=== PATIENT | female | born 1985 | race Caucasian/White ===

== ENCOUNTER 2017-06-02 17:50 | Emergency (ER) | payer BC ==
[2017-06-02 17:57] VITALS: BP 139/73; BMI 36.3
--- NOTE | 2017-06-02 18:24 | DR.GENAD ---
HPI - PCP Primary Care Physician: [place] - Complaint/Symptoms Chief Complaint:: PT C/O VAGINAL BLEEDING/ SPOTTING. PT STATES SHE IS NOTED TO BE 7 WEEKS . PT STATES SHE JUST STARTED THE SPOTTING THIS AFTERNOON AROUND 1600 AND SHE HAS PASSED X 2 SMALL CLOTS. PT DOES HAVE A YANDEL WITH HER OBGYN IN THE AM. SHE IS JUST CONCERNED ABOUT THE BLEEDING - Nurses notes reviewed Nurses Notes Review: Yes - Source History Provided: Patient - Mode of Arrival Mode of Arrival: Ambulatory - Timing Onset of Chief Complaint: 06/02/17 Came on: Gradually - Duration Duration: Intermittent How lon Duration: Hours - Location Location: vagina - Severity Severity: Mild - Modifying Factors Worsens:: unknown - Associated Signs and Symptoms Associated Signs and Symptoms: no pain - Other History Other History: Had ultrasound by [facility] 1 week ago PMH - PMH Past Medical History: No Past Surgical History: Yes Surgical History: , Ortho Surgery - Family History History of Family Medical Conditions: No - Social History Does any household member use tobacco: No Alcohol Use: None Do you use any recreational Drugs:: No Lives With: Family Lives Where: Home - infectious screening In the last 2 months have you had wt loss of >10#?: NO Have you had fever, night sweats or hemotysis?: No Have you traveled outside the country in the last 6 months?: No Isolation: Standard ROS - Review of Systems Constitutional: No Symptoms Reported Eyes: No Symptoms Reported ENTM: No Symptoms Reported Respiratoy: No Symptoms Reported Cardiovascular: No Symptoms Reported Gastrointestinal/Abdominal: No Symptoms Reported Genitourinary: Bleeding (spotting) Neurological: No Symptoms Reported Musculoskeletal: No Symptoms Reported Integumentary: No Symptoms Reported Hematologic/Lymphatic: No Symptoms Reported Endocrine: No Symptoms Reported Psychiatric: No Symptoms Reported PE - Vital Signs Vitals: Temperature 98.1 F Pulse Rate 84 Respiratory Rate 20 Blood Pressure 139/73 O2 Sat by Pulse Oximetry 100 - General Limitations: No Limitations General Appearance: Alert, In No Apparent Distress - Head Head Exam: Normal Inspection - Eyes Eye exam: Normal Appearance, EOMI. negative: Scleral Icterus, Conjunctival Injection - ENT ENT Exam: Normal Exam - Neck Neck Exam: Normal Inspection, Full ROM, Trachea Midline - Respiratory Respiratory Exam: negative: Accessory Muscle Use, Respiratory Distress - Cardiovascular Cardiovascular Exam: Regular Rate - Abdominal Exam Abdominal Exam: Normal Inspection, Distention - Extremities Extremities Exam: Normal Inspection, Full ROM, Tenderness - Back Back Exam: Normal Inspection - Neurologic Neurological Exam: Alert, Oriented X3, CN II-XII Intact - Psychiatric Psychiatric Exam: Anxious - Skin Skin Exam: Intact, Normal Color ROR - Labs Reviewed Laboratory: HCG, Quant 47733 mIU/mL (0-6) H 06/02/17 18:34 Specimen Type Clean catch urine 06/02/17 18:30 Urine Color Yellow (YELLOW) 06/02/17 18:30 Urine Appearance Clear (CLEAR) 06/02/17 18:30 Urine pH 6.0 (5.0 - 8.0) 06/02/17 18:30 Ur Specific [place] 1.020 (1.000-1.030) 06/02/17 18:30 Urine Protein Negative (NEGATIVE) 06/02/17 18:30 Urine Glucose (UA) Negative (NEGATIVE) 06/02/17 18:30 Urine Ketones Negative (NEGATIVE) 06/02/17 18:30 Urine Occult Blood 2+ (NEGATIVE) 06/02/17 18:30 Urine Nitrite Negative (NEGATIVE) 06/02/17 18:30 Urine Bilirubin Negative (NEGATIVE) 06/02/17 18:30 Urine Urobilinogen Normal (NORMAL) 06/02/17 18:30 Ur Leukocyte Esterase Negative (NEGATIVE) 06/02/17 18:30 Urine RBC 0-3 /HPF (NEGATIVE) 06/02/17 18:30 Urine WBC 0-1 /HPF (NEGATIVE) 06/02/17 18:30 Ur Squamous Epith Cells Rare /HPF (NEGATIVE) 06/02/17 18:30 Urine Bacteria Trace /HPF (NEGATIVE) 06/02/17 18:30 Ur Culture Indicated? No/not indicated 06/02/17 18:30 - Diagnosis Discharge Problem: Threatened - Discharge Plan Condition: Stable - Follow ups/Referrals Follow ups/Referrals: DONNELL WILEY [Primary Care Provider] - 3 days - Instructions Instructions: Threatened Miscarriage, [id number]
[2017-06-02 18:42] LABS: BILIRUBIN,URINE NEGATIVE (NEGATIVE); BLOOD/HEMOGLOBIN,URINE 2+ (NEGATIVE); GLUCOSE, URINE NEGATIVE (NEGATIVE); KETONES,URINE NEGATIVE (NEGATIVE); LEUKOCYTE ESTERASE ,URINE NEGATIVE (NEGATIVE); NITRITES,URINE NEGATIVE (NEGATIVE); PROTEIN,URINE NEGATIVE (NEGATIVE); UROBILINOGEN,URINE NORMAL (NORMAL)
[2017-06-02 18:48] LABS: APPEARANCE,URINE CLEAR (CLEAR); BACTERIA,URINE TRACE /HPF (NEGATIVE); COLOR,URINE YELLOW (YELLOW); RBC,URINE 0-3 /HPF (NEGATIVE); SQUAMOUS EPITHELIAL CELL,UR RARE /HPF (NEGATIVE)
== END 2017-06-02 19:45 | disposition home or self-care (01) ==
LOC: ER 18:11
DX: O26.859 Spotting complicating pregnancy, unspecified trimester (principal); O20.0 Threatened abortion
CPT/HCPCS: 36415; 81001; 84702; 99282; 99284

== ENCOUNTER → 2017-06-10 | Outpatient (CLI) | payer BC ==
[2017-06-02 17:57] VITALS: BP 139/73
[2017-06-10 16:47] LABS: BASOPHILS # (AUTO) 0.1 X10^3/uL (0.0-0.1); BASOPHILS % (AUTO) 0.7 % (0.2-1.0); EOSINOPHILS # (AUTO) 0.2 x10^3/uL (0.0-0.2); EOSINOPHILS % (AUTO) 2.1 % (0.9-2.9); HEMATOCRIT 35.9 % (36.0-47.0); HEMOGLOBIN 11.9 g/dL (12.0-16.0); LYMPHOCYTES # (AUTO) 2.2 X10^3/uL (1.3-2.9); LYMPHOCYTES % (AUTO) 29.2 % (21.0-51.0); MEAN CORPUSCULAR HEMOGLOBIN 27.4 pg (27.0-34.0); MEAN CORPUSCULAR HGB CONC 33.3 g/dL (33.0-35.0); MEAN CORPUSCULAR VOLUME 82.4 fL (80.0-100.0); MEAN PLATELET VOLUME 8.7 fL (7.4-11.0); MONOCYTES # (AUTO) 0.5 x10^3/uL (0.3-0.8); MONOCYTES % (AUTO) 7.4 % (0.0-13.0); NEUTROPHILS # (AUTO) 4.5 x10^3/uL (2.2-4.8); NEUTROPHILS % (AUTO) 60.6 % (42.0-75.0); PLATELET COUNT 187 X10^3/uL (150.0-450.0); RED BLOOD COUNT 4.35 X10^6/uL (3.5-5.4); RED CELL DISTRIBUTION WIDTH 15.3 % (11.6-16.5); WHITE BLOOD COUNT 7.4 X10^3/uL (3.6-10.0)
[2017-06-10 16:54] LABS: BLOOD UREA NITROGEN 9 mg/dL (7-18); CARBON DIOXIDE 27.3 mmol/L (21-32); CHLORIDE 103 mmol/L (98-107); CREATININE 0.69 mg/dL (0.55-1.02); GLUCOSE 82 mg/dL (65-99); SODIUM 138 mmol/L (136-145); eGFR BLACK RACES > 60 (>60); eGFR NON BLACK RACES > 60 (>60)
[2017-06-10 16:56] LABS: BILIRUBIN,URINE NEGATIVE (NEGATIVE); BLOOD/HEMOGLOBIN,URINE 4+ (NEGATIVE); GLUCOSE, URINE NEGATIVE (NEGATIVE); KETONES,URINE NEGATIVE (NEGATIVE); LEUKOCYTE ESTERASE ,URINE NEGATIVE (NEGATIVE); NITRITES,URINE NEGATIVE (NEGATIVE); PROTEIN,URINE NEGATIVE (NEGATIVE); UROBILINOGEN,URINE NORMAL (NORMAL)
[2017-06-10 17:25] LABS: APPEARANCE,URINE CLEAR (CLEAR); BACTERIA,URINE TRACE /HPF (NEGATIVE); COLOR,URINE YELLOW (YELLOW); SQUAMOUS EPITHELIAL CELL,UR MODERATE /HPF (NEGATIVE)
== END ==
LOC: LAB 16:11
PROVIDERS: ATTEND Specialist
DX: Z01.812 Encounter for preprocedural laboratory examination (principal); O02.1 Missed abortion
CPT/HCPCS: 36415; 80048; 81001; 85025; 85610; 85730; 86592; 86850; 86900; 86901; 87086

== ENCOUNTER → 2017-06-12 | Day surgery (SDC) | payer BC ==
[~2017-06-12] MED LIST: ANCEF VIAL 1 GM ONE; D5 1/2 NS 1000 ML 1,000 ML IV ONE; DIPRIVAN VIAL ONE; FENTANYL INJ 100 mcg ONE; NS 50 ML IV + SPIKE MINIBAG* 50 ML IV ONE; PERCOCET TAB 5/325 MG ONE; PITOCIN ONE; VERSED ONE; XYLOCAINE 2 % (PLAIN) ONE; ZOFRAN INJ 4 MG VIAL ONE
[2017-06-12 08:39] VITALS: BP 121/74
== END | disposition home or self-care (01) | DRG 770 ==
LOC: SURG1 06:24
PROVIDERS: ATTEND Specialist
PROC: 10D17ZZ Extraction of Products of Conception, Retained, Via Natural or Artificial Opening (ICD-10-PCS; principal; 2017-06-12 07:30)
DX: O02.1 Missed abortion (principal)
CPT/HCPCS: A4222; J0690; J2001; J2250; J2405; J2590; J3010; J3490; J7042

== ENCOUNTER 2022-06-17 08:12 | Inpatient (IN) ==
[2022-06-17 08:18] VITALS: BMI 35.4
--- NOTE | 2022-06-17 08:57 | ED.ABDFE ---
HPI Time Seen Time Seen by Provider: 06/17/22 08:42 PCP Primary Care Physician: SAURABH LOWE Complaint Doctors Chief Complaint Comments: 36 y/o female presents for evaluation. Is 7 wks . Developed severe abdominal pain yesterday am. Was located across upper abdomen, radiated down to LLQ. Occurred at rest. Last several minutes. Was worse with moving. Nothing made it better. No associated nausea, vomitng, diaphoresis, bowel or bladder issues, fever, rash. Resolved after several minutes on its own. Fine the rest of the day. Reoccurred early this am at rest. Currently not as bad. Sent in by OB for evaluation. Chief Complaint:: PT IS 7 WEEKS , PT REPORTS HAVING PAIN TO HER LEFT UPPER QUAD, THAT RADIATES TO HER LOWER PELVIC AREA, PT STATES PAIN STARTED YESTEDAY WHILE SITTING THAN IT WENT AWAY, 0630- PTS PAIN HAS STARTED AGAIN TO THE SAME AREA, ( PT DENIES VAGINAL LEAKING, BLEEDING OR DISCHARE ) PT REPORTS THAT PAIN FEELS MORE MUSCULAR,,BR Self Treatment fo Chief Complaint: PT DENIES DYSURIA, COVID-19 Coronavirus risk:travel/contact w/high risk person: No Has patient experienced Coronavirus symptoms: No Reviewed Nurses Notes Review: Yes Source History Provided: Patient Mode of arrival Mode of Arrival: Ambulatory Timing Onset of Chief Complaint: 06/16/22 PMH PMH Past Medical History: No Past Surgical History: Yes Surgical History: Past Surgical History Comment: D AND C, Family History History of Family Medical Conditions: No Social History Does patient currently use any type of tobacco product: No Have you used tobacco products in the last 12 months: No Type of Tobacco Use: None Does any household member use tobacco: No Alcohol Use: None Do you use any recreational Drugs:: No Lives With: Family Lives Where: Home Travel Risk Coronavirus risk:travel/contact w/high risk person: No Has patient experienced Coronavirus symptoms: No Infectious screening In the last 2 months have you had wt loss of >10#?: NO Have you had fever, night sweats or hemotysis?: No Have you traveled outside the country in the last 6 months?: No Isolation: Standard ROS Review of Systems Constitutional: No Symptoms Reported Eyes: No Symptoms Reported ENTM: No Symptoms Reported Respiratoy: No Symptoms Reported Cardiovascular: No Symptoms Reported Gastrointestinal/Abdominal: See HPI Genitourinary: No Symptoms Reported Neurological: No Symptoms Reported Musculoskeletal: No Symptoms Reported Integumentary: No Symptoms Reported Hematologic/Lymphatic: No Symptoms Reported Psychiatric: No Symptoms Reported All Other Systems: Reviewed and Negative PE Vital Signs Vitals: Temperature 96.5 F Pulse Rate 83 Respiratory Rate 18 Blood Pressure 129/72 O2 Sat by Pulse Oximetry 98 General General Appearance: Alert and In No Apparent Distress Eyes Eye exam: PERRL and EOMI Neck Neck Exam: Normal Inspection and Full ROM Respiratory Respiratory Exam: Normal Lung Sounds Bilat; negative Accessory Muscle Use or Respiratory Distress Cardiovascular Cardiovascular Exam: Regular Rate, Normal Rhythm and Normal Heart Sounds Abdominal Exam Abdominal Exam: Normal Bowel Sounds, Soft and Tenderness (all quadrants, no guarding or rebound. + pain with Valsalva, straight leg raising.) Back Back Exam: Normal Inspection; negative (R) CVA Tenderness or (L) CVA Tenderness Extremeties Extremities Exam: Normal Inspection and Full ROM; negative Edema Neurologic Neurological Exam: Alert, Oriented X3 and CN II-XII Intact; negative Motor Sensory Deficit Psychiatric Psychiatric Exam: Normal Affect Skin Skin Exam: Warm and Dry; negative Rash MDM Differential Diagnosis Differential Diagnosis- Considerations may include:: -Missed, -Threatened, Appendicitis, Cholcystitis, Cholelethiasis, Diverticular disease, Ectopic , Gastritus/PUD, Gastroenteritis, Pancreatitis, Urinary tract infection and Urolithiasis COURSE Treatment Treatment: 36 y/o female, 7 weeks gestation, having intermittent abdominal pain. Clinically seems muscular in origin. W/u initiated. 1038 - pt remains stable. US shows R adnexal ectopic, with cardiac activity, small amount of free fluid. Labs acceptable. PT informed. Is NPO. Dr Antoine notified, will be taking pt to the OR. ROR Labs Reviewed Laboratory Results Reviewed?: Yes Result Diagrams: 06/17/22 09:00 06/17/22 09:00 Laboratory: WBC 7.0 X10^3/uL (3.6-10.0) 06/17/22 09:00 RBC 4.13 X10^6/uL (3.5-5.4) 06/17/22 09:00 Hgb 10.8 g/dL (12.0-16.0) L 06/17/22 09:00 Hct 32.5 % (36.0-47.0) L 06/17/22 09:00 MCV 78.6 fL (80.0-100.0) L 06/17/22 09:00 MCH 26.3 pg (27.0-34.0) L 06/17/22 09:00 MCHC 33.4 g/dL (33.0-35.0) 06/17/22 09:00 RDW 15.8 % (11.6-16.5) 06/17/22 09:00 Plt Count 208 X10^3/uL (150.0-450.0) 06/17/22 09:00 MPV 8.6 fL (7.4-11.0) 06/17/22 09:00 Neut % (Auto) 75.0 % (42.0-75.0) 06/17/22 09:00 Lymph % (Auto) 19.1 % (21.0-51.0) L 06/17/22 09:00 [place] % (Auto) 4.5 % (0.0-13.0) 06/17/22 09:00 Eos % (Auto) 1.0 % (0.9-2.9) 06/17/22 09:00 Baso % (Auto) 0.4 % (0.2-1.0) 06/17/22 09:00 Neut # (Auto) 5.2 x10^3/uL (2.2-4.8) H 06/17/22 09:00 Lymph # (Auto) 1.3 X10^3/uL (1.3-2.9) 06/17/22 09:00 [place] # (Auto) 0.3 x10^3/uL (0.3-0.8) 06/17/22 09:00 Eos # (Auto) 0.1 x10^3/uL (0.0-0.2) 06/17/22 09:00 Baso # (Auto) 0.0 X10^3/uL (0.0-0.1) 06/17/22 09:00 Absolute Nucleated RBC 0.0 /100WBC 06/17/22 09:00 Sodium 139 mmol/L (136-145) 06/17/22 09:00 Corrected Sodium TNP 06/17/22 09:00 Potassium 3.5 mmol/L (3.5-5.1) 06/17/22 09:00 Chloride 103 mmol/L (98-107) 06/17/22 09:00 Carbon Dioxide 25.4 mmol/L (21-32) 06/17/22 09:00 BUN 8 mg/dL (7-18) 06/17/22 09:00 Creatinine 0.67 mg/dL (0.55-1.02) 06/17/22 09:00 Est GFR (MDRD) Af Amer > 60 (>60) 06/17/22 09:00 Est GFR (MDRD) Non-Af > 60 (>60) 06/17/22 09:00 Glucose 93 mg/dL (65-99) 06/17/22 09:00 Calcium 8.4 mg/dL (8.5-10.1) L 06/17/22 09:00 Corrected Calcium 9.2 mg/dL (8.5-10.1) 06/17/22 09:00 Total Bilirubin 0.70 mg/dL (0.2-1.0) 06/17/22 09:00 AST 14 Units/L (15-37) L 06/17/22 09:00 ALT 18 Units/L (12-78) 06/17/22 09:00 Alkaline Phosphatase 68 Units/L (46-116) 06/17/22 09:00 Total Protein 7.1 g/dL (6.4-8.2) 06/17/22 09:00 Albumin 3.0 g/dL (3.4-5.0) L 06/17/22 09:00 Globulin 4.1 g/dL (2.5-4.5) 06/17/22 09:00 Albumin/Globulin Ratio 0.7 Ratio (1.1-2.1) L 06/17/22 09:00 HCG, Quant 83532 mIU/mL (0-6) H 06/17/22 09:00 Specimen Type Clean catch urine 06/17/22 08:32 Urine Color Yellow (YELLOW) 06/17/22 08:32 Urine Appearance Clear (CLEAR) 06/17/22 08:32 Urine pH 6.0 (5.0 - 8.0) 06/17/22 08:32 Ur Specific [place] 1.010 (1.000-1.030) 06/17/22 08:32 Urine Protein Negative (NEGATIVE) 06/17/22 08:32 Urine Glucose (UA) Negative (NEGATIVE) 06/17/22 08:32 Urine Ketones Negative (NEGATIVE) 06/17/22 08:32 Urine Blood Negative (NEGATIVE) 06/17/22 08:32 Urine Nitrite Negative (NEGATIVE) 06/17/22 08:32 Urine Bilirubin Negative (NEGATIVE) 06/17/22 08:32 Urine Urobilinogen Normal (NORMAL) 06/17/22 08:32 Ur Leukocyte Esterase Negative (NEGATIVE) 06/17/22 08:32 Mild anemia, quant HCG 14K XRAY XRAY Interpreted by: Radiologist X-ray Results: Transvaginal US with R ectopic . Opioid Opioid Risk Tool Age (Singh box if 16-45): Yes History of Preadolescent Sexual Abuse: No Total: 1 Total Score Risk Category: Low Risk Copyright: Kishor MEJIA predicting aberrant behaviors Discharge Plan Diagnosis Discharge Problem: Ectopic of right ovary Discharge Plan Patient Disposition: 09 ADMITTED INPATIENT Condition: Stable Prescriptions: No Action ibuprofen 800 MG tablet 800 mg PO Q8H PRN (Reason: Pain/Inflammation) Qty: 30 0RF oxycodone-acetaminophen [Percocet] 1 EACH tablet 1 - 2 tab PO Q4-6H PRNQty: 30 0RF Health Concerns: Post Hospitalization: new medications and changes needed to prevent readmission or further decline. Pt educated and given instructions on all concerns. Plan of Treatment: Continue with present treatment and follow up plan. Pt is to keep follow up appointment as instructed and take medications as ordered. Follow ups/Referrals Follow ups/Referrals: DONNELL ANTOINE [Primary Care Provider] - 3 days
[2022-06-17 09:10] LABS: BASOPHILS % (AUTO) 0.4 % (0.2-1.0); EOSINOPHILS # (AUTO) 0.1 x10^3/uL (0.0-0.2); HEMATOCRIT 32.5 % (36.0-47.0); HEMOGLOBIN 10.8 g/dL (12.0-16.0); LYMPHOCYTES # (AUTO) 1.3 X10^3/uL (1.3-2.9); LYMPHOCYTES % (AUTO) 19.1 % (21.0-51.0); MEAN CORPUSCULAR HEMOGLOBIN 26.3 pg (27.0-34.0); MEAN CORPUSCULAR HGB CONC 33.4 g/dL (33.0-35.0); MEAN CORPUSCULAR VOLUME 78.6 fL (80.0-100.0); MEAN PLATELET VOLUME 8.6 fL (7.4-11.0); MONOCYTES # (AUTO) 0.3 x10^3/uL (0.3-0.8); MONOCYTES % (AUTO) 4.5 % (0.0-13.0); NEUTROPHILS # (AUTO) 5.2 x10^3/uL (2.2-4.8); RED BLOOD COUNT 4.13 X10^6/uL (3.5-5.4); RED CELL DISTRIBUTION WIDTH 15.8 % (11.6-16.5)
[2022-06-17 09:10] LABS: BILIRUBIN,URINE NEGATIVE (NEGATIVE); BLOOD/HEMOGLOBIN,URINE NEGATIVE (NEGATIVE); GLUCOSE, URINE NEGATIVE (NEGATIVE); KETONES,URINE NEGATIVE (NEGATIVE); LEUKOCYTE ESTERASE ,URINE NEGATIVE (NEGATIVE); NITRITES,URINE NEGATIVE (NEGATIVE); PROTEIN,URINE NEGATIVE (NEGATIVE); UROBILINOGEN,URINE NORMAL (NORMAL)
[2022-06-17 09:15] LABS: APPEARANCE,URINE CLEAR (CLEAR); COLOR,URINE YELLOW (YELLOW)
[2022-06-17 09:22] LABS: ALANINE AMINOTRANSFERASE 18 Units/L (12-78); ALKALINE PHOSPHATASE 68 Units/L (46-116); ASPARTATE AMINO TRANSFERASE 14 Units/L (15-37); BLOOD UREA NITROGEN 8 mg/dL (7-18); CALCIUM 8.4 mg/dL (8.5-10.1); CARBON DIOXIDE 25.4 mmol/L (21-32); CHLORIDE 103 mmol/L (98-107); COR CA(FOR HYPOALB) 9.2 mg/dL (8.5-10.1); CREATININE 0.67 mg/dL (0.55-1.02); SODIUM 139 mmol/L (136-145); TOTAL PROTEIN 7.1 g/dL (6.4-8.2); eGFR NON BLACK RACES > 60 (>60)
[2022-06-17 10:14] LABS: HCG,QUANTITATIVE 41297 mIU/mL (0-6)
--- NOTE | 2022-06-17 10:15 | US ---
HISTORYReason For StudySTUDYTRANSVAGINALCOMPARISONNone .br.br.br approach.FINDINGSGestational age by LMP 9 weeks 4 days.There is an ectopic in the right adnexa. The gestational sac mean sac diameter is 2 cm corresponding to 7 weeks 1 day. Yolk sac measures 2 mm. pole measures 1.0 cm corresponding to 7 weeks 1 day. heart rate is 160 beats per minute.There is mild free fluid in the cul-de-sac.The uterus measures 8.8 x 5.2 x 12.8 cm. Endometrium measures 2.9 mm. No intrauterine identified. Right ovary measures 5.7 x 3.5 x 3.7 cm. Left ovary not visualized. There is normal Doppler flow to the right ovary.IMPRESSIONEctopic in the right adnexa. Mild free fluid in the cul-de-sac. Recommend immediate fire lieutenant consultation (if not already done).Electronically signed by: [place] (Jun 17, 2022 10:14:05)
[2022-06-17] MEDS ORDERED: NS 1,000 ML IV 0 ML ONE (10:25)
[2022-06-17] MEDS ORDERED: D5 1/2 NS 1,000 ML 1,000 ML IV ONE ×2 (10:37→13:34)
[2022-06-17] MEDS ORDERED: VERSED ONE (10:45)
[2022-06-17] MEDS ORDERED: FENTANYL VIAL INJ 100 mcg ONE ×2 (10:45→11:22)
[2022-06-17] MEDS ORDERED: BRIDION ONE (10:46)
[2022-06-17] MEDS ORDERED: PEPCID 20 MG VIAL ONE (10:46)
[2022-06-17] MEDS ORDERED: ZOFRAN INJ 4 MG VIAL ONE (10:46)
[2022-06-17] MEDS ORDERED: QUELICIN (OR ANECTINE) ONE (10:46)
[2022-06-17] MEDS ORDERED: DIPRIVAN VIAL 20 ML ONE (10:46)
[2022-06-17] MEDS ORDERED: ZEMURON 100 MG VIAL ONE (10:46)
[2022-06-17] MEDS ORDERED: ANCEF VIAL 1 GRAM ONE (10:53)
[2022-06-17] MEDS ORDERED: NS 100 ML IV 100 ML ONE (10:53)
[2022-06-17] MEDS ORDERED: SUPRANE ONE (11:00)
[2022-06-17] MEDS ORDERED: TORADOL 30 MG VIAL ONE ×2 (11:38→13:34)
[2022-06-17] MEDS ORDERED: BENADRYL INJ 50 MG VIAL IVP PRN ×2 (12:13→12:31)
[2022-06-17] MEDS ORDERED: PHENERGAN INJ 25 MG IM PRN (12:13)
[2022-06-17] MEDS ORDERED: DILAUDID INJ ONE (12:13)
[2022-06-17] MEDS ORDERED: REGLAN INJ 10 MG VIAL IVP PRN (12:13)
[2022-06-17] MEDS ORDERED: ZOFRAN INJ 4 MG VIAL IVP PRN ×2 (12:13→12:31)
[2022-06-17] MEDS ORDERED: BARHEMSYS INJ IVP PRN (12:13)
[2022-06-17] MEDS: DILAUDID INJ IVP PRN ×2 (12:15→12:20)
[2022-06-17] MEDS ORDERED: TORADOL 30 MG VIAL IVP PRN (12:31)
[2022-06-17] MEDS: D5 1/2 NS 1,000 ML 1,000 ML IV SCH ×2 (13:35→22:57)
[2022-06-17] MEDS: PERCOCET TAB 5/325 MG PO PRN ×2 (17:04→21:23)
[2022-06-17] MEDS: MOTRIN TAB 800 MG PO PRN (20:38)
[2022-06-18] MEDS: MOTRIN TAB 800 MG PO PRN (04:44)
[2022-06-18 05:17] LABS: BASOPHILS % (AUTO) 0.3 % (0.2-1.0); EOSINOPHILS # (AUTO) 0.1 x10^3/uL (0.0-0.2); EOSINOPHILS % (AUTO) 1.7 % (0.9-2.9); HEMATOCRIT 26.3 % (36.0-47.0); HEMOGLOBIN 8.9 g/dL (12.0-16.0); LYMPHOCYTES # (AUTO) 1.4 X10^3/uL (1.3-2.9); LYMPHOCYTES % (AUTO) 19.3 % (21.0-51.0); MEAN CORPUSCULAR HEMOGLOBIN 26.3 pg (27.0-34.0); MEAN CORPUSCULAR HGB CONC 33.8 g/dL (33.0-35.0); MEAN CORPUSCULAR VOLUME 77.8 fL (80.0-100.0); MEAN PLATELET VOLUME 8.7 fL (7.4-11.0); MONOCYTES # (AUTO) 0.5 x10^3/uL (0.3-0.8); MONOCYTES % (AUTO) 6.5 % (0.0-13.0); NEUTROPHILS # (AUTO) 5.2 x10^3/uL (2.2-4.8); NEUTROPHILS % (AUTO) 72.2 % (42.0-75.0); RED BLOOD COUNT 3.37 X10^6/uL (3.5-5.4); RED CELL DISTRIBUTION WIDTH 15.4 % (11.6-16.5); WHITE BLOOD COUNT 7.3 X10^3/uL (3.6-10.0)
[2022-06-18 05:21] LABS: BLOOD UREA NITROGEN 5 mg/dL (7-18); CALCIUM 7.9 mg/dL (8.5-10.1); CARBON DIOXIDE 26.9 mmol/L (21-32); CHLORIDE 104 mmol/L (98-107); SODIUM 139 mmol/L (136-145); eGFR NON BLACK RACES > 60 (>60)
[2022-06-18] MEDS ORDERED: BACTROBAN TOPICAL OINT TOP SCH (06:30)
[2022-06-18] MEDS: D5 1/2 NS 1,000 ML 1,000 ML IV SCH (08:59)
[2022-06-18] MEDS ORDERED: COLACE CAP 100 MG PO SCH (09:00)
[2022-06-18] MEDS: PERCOCET TAB 5/325 MG PO PRN (09:01)
[2022-06-18 09:26] VITALS: BP 95/54
== END 2022-06-18 09:50 | disposition home or self-care (01) | DRG 819 ==
LOC: ER 08:12 → MED/SURG 12:31
PROVIDERS: ADMIT Specialist; ATTEND Specialist
DX: O00.111 Right tubal pregnancy with intrauterine pregnancy